=== PATIENT | male | born 1965 | race Caucasian/White ===

== ENCOUNTER 2017-07-09 12:37 | Emergency (ER) | payer OTHER ==
[2017-07-09 13:12] VITALS: BMI 24.4
[2017-07-09] MEDS ORDERED: SODIUM CHLORIDE 1,000 ML IV STA (13:38)
[2017-07-09] MEDS ORDERED: KETOROLAC TROMETHAMINE 30 MG/1 ML VIAL IVPUSH ONE (13:38)
[2017-07-09] MEDS ORDERED: KETOROLAC TROMETHAMINE 30 MG/1 ML VIAL ONE (13:47)
--- NOTE | 2017-07-09 13:51 | PDOC ---
History of Present Illness - General Chief Complaint: Headache Stated Complaint: HEADACHE Time Seen by Provider: 07/09/17 13:16 History Source: Patient Exam Limitations: No Limitations - History of Present Illness Initial Comments: 07/09/17 13:09 52-year-old male with past medical history of cardiac arrhythmia and defibrillator placed 11 years ago with battery change one year ago presents with pressure-like discomfort intermittently for the past 2 weeks to the temporal region radiating to the occipital region. Patient states has taken Tylenol for the above with moderate improvement but only to have the pain return a few hours after. Patient also complaining of mild nausea with pain. Patient denies any visual changes, fever, chills, neck stiffness, recent illness , recent travel, or recent head injury. 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 Patient also states last week his defibrillator was sleeping and so went to see his animal caretaker at [facility] who told him that a wire maybe afraid resulting in having his defibrillator turned off in fear of shocking patient. Patient states is due for follow-up with his doctor this week but this morning developed a "heaviness " to his left chest wall which has been intermittent since this morning. Patient has no other associated symptoms such as palpitations, dizziness, diaphoresis, or shortness of breath. Patient denies drug or excessive alcohol use. Timing/Duration: reports: waxing and waning Severity: Yes: moderate Associated Symptoms: reports: nausea/vomiting Past History - Travel Traveled outside of the country in the last 30 days: No Close contact w/someone who was outside of country & ill: No - Past Medical History Allergies/Adverse Reactions: Allergies Allergy/AdvReac Type Severity Reaction Status Date / Time No Known Allergies Allergy Verified 07/09/17 12:59 Home Medications: Ambulatory Orders NK [No Known Home Medication] 11/30/15 Cardiac Disorders: Yes (ICD, Brugada syndrome) Other medical history: ? burgada syndrome - Surgical History Appendectomy: Yes Cardiac Surgery: Yes (ICD) - Immunization History Immunization Up to Date: Yes - Psycho/Social/Smoking Cessation Hx Suicidal Ideation: No Smoking History: Never smoked Hx Alcohol Use: Yes Drug/Substance Use Hx: No Patient Lives Alone: No Lives with/in: spouse/SO Review of Systems - Review of Systems Able to Perform ROS?: Yes Constitutional: No: Symptoms Reported HEENTM: No: Symptoms Reported Respiratory: No: Symptoms reported Cardiac (ROS): Yes: Other (left chest heaviness) ABD/GI: Yes: Symptoms Reported, Nausea : No: Symptoms Reported Musculoskeletal: No: Symptoms Reported Integumentary: No: Symptoms Reported Neurological: Yes: Headache. No: Weakness, Dizziness Endocrine: No: Symptoms Reported Hematologic/Lymphatic: No: Symptoms Reported *Physical Exam - Vital Signs Last Vital Signs Temp Pulse Resp BP Pulse Ox 98.1 F 61 18 111/71 98 07/09/17 12:59 07/09/17 12:59 07/09/17 12:59 07/09/17 12:59 07/09/17 12:59 - Physical Exam General Appearance: Yes: Nourished, Appropriately Dressed. No: Apparent Distress HEENT: negative: Pale Conjunctivae Neck: positive: Supple Respiratory/Chest: positive: Lungs Clear, Normal Breath Sounds. negative: Chest Tender (left icd palpated to left upper chest wall), Respiratory Distress , Accessory Muscle Use Cardiovascular: positive: Regular Rhythm, Regular Rate. negative: Murmur Gastrointestinal/Abdominal: positive: Soft. negative: Tenderness Heart Score/ECG Review - History History: Slightly suspicious - Electrocardiogram EKG: Normal - Age Age: 45-65 - Risk Factors Based on the list above the patient has:: 1-2 risk factors - Troponin Troponin: </= normal limit - Score Heart Score - Total: 2 - ECG Intrepretation Rhythm: Regularly Irregular Comment:: 07/09/17 14:24 rate 60. In V2, rhythm suggestive of Brugada syndrome ED Treatment Course - LABORATORY CBC & Chemistry Diagram: 07/09/17 14:24 07/09/17 14:24 - RADIOLOGY Radiology Studies Ordered: Category Date Time Status HEAD CT WITHOUT CONTRAST [CT] Stat CT Scan 07/09/17 13:38 Ordered CHEST X-RAY PORTABLE* [RAD] Stat Radiology 07/09/17 13:38 Ordered Medical Decision Making - Medical Decision Making 07/09/17 14:04 Patient complains of subjective head pressure to the temporal region radiating to his occipital area intimately for the past 2 weeks. Patient has no other complaints except for mild nausea with associated symptom. Patient does also complaint of left sided chest heaviness intermittently since this morning. Patient is followed by Dr. Cruz animal caretaker who shut the ICD off on Sunday due to "frayed wire "patient ordered for cardiac workup along with head CT, IV fluids and IV Toradol. 07/09/17 15:[address] negative for acute intracranial pathology. Case discussed with Dr. Argueta , animal caretaker feels this patient should be transferred to [facility] attempting to contact Dr. Glory cruz patient's animal caretaker to discuss this matter.. 07/09/17 15:44 Laboratory Tests 07/09/17 07/09/17 07/09/17 13:45 14:24 14:24 WBC 6.3 Hgb 15.6 Hct 45.5 Plt Count 169 D Eosinophils % 5.2 H D INR 1.00 Sodium Potassium Chloride Carbon Dioxide Anion Gap BUN Creat Clearance w eGFR Random Glucose Calcium Total Bilirubin AST ALT Alkaline Phosphatase Troponin I Urine Ketones Negative Urine Nitrite Negative Ur Leukocyte Esterase Negative 07/09/17 14:24 WBC Hgb Hct Plt Count Eosinophils % INR Sodium 142 Potassium 4.4 Chloride 105 Carbon Dioxide 30 Anion Gap 7 L BUN 11 D Creat Clearance w eGFR > 60 Random Glucose 82 Calcium 9.2 Total Bilirubin 0.5 D AST 14 L D ALT 42 Alkaline Phosphatase 65 Troponin I < 0.02 Urine Ketones Urine Nitrite Ur Leukocyte Esterase 07/09/17 16:28 Discussed with covering physician for Dr. Glory Corona along with [facility] animal caretaker construction inspector Dr. medel who accepted patient to [facility]. Patient currently asymptomatic and remains on monitor. Patient aware of transfer and plan. *DC/Admit/Observation/Transfer Diagnosis at time of Disposition: Chest heaviness - Discharge Dispostion Disposition: TRANSFER ACUTE CARE/OTHER HOSP Condition at time of disposition: Fair - Transfer to Acute Care Facility Receiving Facility: [facility] Accepting Physician:: Satish lowery/ [place]
[2017-07-09 14:35] LABS: URINE APPEARANCE CLEAR; URINE BILIRUBIN NEGATIVE (NEGATIVE); URINE BLOOD NEGATIVE (NEGATIVE); URINE COLOR YELLOW; URINE GLUCOSE (UA) NEGATIVE (NEGATIVE); URINE KETONE NEGATIVE (NEGATIVE); URINE LEUK ESTERASE NEGATIVE (NEGATIVE); URINE NITRITE NEGATIVE (NEGATIVE); URINE PROTEIN NEGATIVE (NEGATIVE); URINE UROBILINOGEN NEGATIVE mg/dL (0.2-1.0)
[2017-07-09 14:41] LABS: BASOPHIL 0.8 % (0-2.0); EOSINOPHIL 5.2 % (0-4.5); MCHC 34.3 g/dl (32.0-35.9); MEAN CELL VOLUME 93.5 fl (80-96); MEAN PLT VOLUME 9.4 fl (7.5-11.1); PLATELET COUNT 169 K/MM3 (134-434); RDW 13.5 % (11.9-15.9); WHITE BLOOD COUNT 6.3 K/mm3 (4.0-10.0)
[2017-07-09 15:08] LABS: ALBUMIN 4.1 g/dl (3.4-5.0); ANION GAP 7 (8-16); CALCIUM 9.2 mg/dL (8.5-10.1); CO2 30 mmol/L (21-32); CREATININE 0.9 mg/dL (0.7-1.3); GLUCOSE,RANDOM 82 mg/dL (74-106); SGOT/AST 14 U/L (15-37); SGPT/ALT 42 U/L (12-78)
[2017-07-09 15:10] LABS: ALK PHOS 65 U/L (45-117); BILIRUBIN,TOTAL 0.5 mg/dL (0.2-1.0); CPK 80 IU/L (39-308)
[2017-07-09 15:11] LABS: TROPONIN I < 0.02 ng/ml (0.00-0.05)
[2017-07-09 17:43] VITALS: BP 115/60; PULSE 60; TEMP 98
--- NOTE | 2017-07-10 18:12 | EKG ---
Test Reason : Blood Pressure : / mmHG Vent. Rate : 060 BPM Atrial Rate : 060 BPM P-R Int : 186 ms QRS Dur : 100 ms QT Int : 378 ms P-R-T Axes : 077 012 055 degrees QTc Int : 378 ms NORMAL SINUS RHYTHM RBBB JUNCTIONAL ST DEPRESSION, PROBABLY NORMAL BORDERLINE ECG NO PREVIOUS ECGS AVAILABLE CANNOT EXCLUDE BRAGADA SYNDROME WOULD RECOMMEND REPEAT TRACING Confirmed by KAVITA QUIROGA MD ([id number]) on 07/10/2017 6:12:16 PM Referred By: Confirmed By:KAVITA QUIROGA MD
== END 2017-07-09 17:57 | disposition short-term general hospital (02) ==
LOC: JER 12:37
PROC: 3E033RZ Introduction of Antiarrhythmic into Peripheral Vein, Percutaneous Approach (ICD-10-PCS; principal; 2017-07-09)
DX: R07.89 Other chest pain (principal); T82.897A Other specified complication of cardiac prosthetic devices, implants and grafts, initial encounter; I49.8 Other specified cardiac arrhythmias
CPT/HCPCS: 36415; 70450-TC; 71010-TC; 80053; 81003; 84484; 85025; 85610; 93005; 93010; 99285-25

== ENCOUNTER 2022-11-16 03:58 | Day surgery (SDC) | payer OTHER ==
[2022-11-13 13:42] VITALS: BMI 26.6
[2022-11-16] MEDS ORDERED: MIDAZOLAM HCL 2 MG/2 ML SINGLE DOSE VIAL ONE (07:22)
[2022-11-16] MEDS ORDERED: LIDOCAINE HCL/PF 2% SDV 5ML VIAL ONE (07:22)
[2022-11-16] MEDS ORDERED: PROPOFOL 20 ML ONE (07:22)
[2022-11-16] MEDS ORDERED: DEXAMETHASONE SOD PHOSPHATE 4 MG/1 ML VIAL ONE (07:22)
[2022-11-16] MEDS ORDERED: ROCURONIUM BROMIDE 50 MG/5 ML SYRINGE ONE (07:22)
[2022-11-16] MEDS ORDERED: ONDANSETRON 4 MG/2 ML VIAL ONE (07:22)
[2022-11-16] MEDS ORDERED: ePHEDrine SULFATE 50 MG/1 ML AMPULE ONE (08:06)
[2022-11-16] MEDS ORDERED: ceFAZolin SODIUM 1 GM VIAL IVPB ONE (08:15)
[2022-11-16] MEDS ORDERED: ceFAZolin SODIUM 1 GM VIAL ONE (08:17)
[2022-11-16] MEDS ORDERED: NEOSTIGMINE METHYLSULFATE 0.5 MG/1 ML - 10 ML MDV ONE (09:37)
[2022-11-16] MEDS ORDERED: GLYCOPYRROLATE 0.2 MG/1 ML VIAL ONE (09:38)
[2022-11-16] MEDS ORDERED: ONDANSETRON 4 MG/2 ML VIAL IVPUSH PRN (10:28)
[2022-11-16] MEDS ORDERED: oxyCODONE HCL 5 MG TABLET PO PRN (10:28)
[2022-11-16] MEDS ORDERED: LACTATED RINGERS SOLUTION 1,000 ML IV SCH (10:30)
[2022-11-16 10:48] VITALS: RESP 18
[2022-11-16 12:51] VITALS: BP 129/70; PULSE 70; TEMP 98.1
== END 2022-11-16 12:30 | disposition home or self-care (01) ==
LOC: JASU-SURG 03:58
PROVIDERS: ATTEND Otolaryngology
PROC: 09TU8ZZ Resection of Right Ethmoid Sinus, Via Natural or Artificial Opening Endoscopic (ICD-10-PCS; 2022-11-16)
PROC: 09TV8ZZ Resection of Left Ethmoid Sinus, Via Natural or Artificial Opening Endoscopic (ICD-10-PCS; principal; 2022-11-16 08:00)
DX: J32.8 Other chronic sinusitis (principal); J33.9 Nasal polyp, unspecified; J34.3 Hypertrophy of nasal turbinates
CPT/HCPCS: 88304-TC; 94760

== ENCOUNTER 2024-05-08 13:08 | Emergency (ER) | payer OTHER ==
[2024-05-08] MEDS ORDERED: DIPHTH,PERTUSS(ACELL),TET 0.5 ML DISP.SYRIN IM ONE (13:57)
[2024-05-08 13:59] VITALS: BMI 24.4
[2024-05-08] MEDS: DIPHTH,PERTUSS(ACELL),TET 0.5 ML DISP.SYRIN IM ONE (14:04)
[2024-05-08 14:54] VITALS: BP 104/67; PULSE 62; RESP 20; TEMP 98.4
== END 2024-05-08 15:10 | disposition home or self-care (01) ==
LOC: JERFT 13:08
PROC: 0HQGXZZ Repair Left Hand Skin, External Approach (ICD-10-PCS; principal; 2024-05-08)
PROC: 3E0234Z Introduction of Serum, Toxoid and Vaccine into Muscle, Percutaneous Approach (ICD-10-PCS; 2024-05-08)
DX: S61.211A Laceration without foreign body of left index finger without damage to nail, initial encounter (principal); R20.0 Anesthesia of skin; W26.8XXA Contact with other sharp object(s), not elsewhere classified, initial encounter; Z23 Encounter for immunization
CPT/HCPCS: 12002-25; 82962; 90471; 90715; 93005; 93010; 99282-25